=== PATIENT | male | born 1965 | race Caucasian/White ===

== ENCOUNTER → 2017-03-31 | Outpatient (CLI) | payer OTHER ==
[~2017-03-31] MED LIST: IOPAMIDOL (ISOVUE 370) 100 ML BTL IV ONE
== END ==
LOC: FIMAGING 14:36
PROVIDERS: ATTEND Family Medicine
DX: M79.606 Pain in leg, unspecified (principal); E10.9 Type 1 diabetes mellitus without complications; K86.89 Other specified diseases of pancreas; M71.22 Synovial cyst of popliteal space [Baker], left knee; Z98.1 Arthrodesis status
CPT/HCPCS: 75635; Q9967

== ENCOUNTER 2018-08-21 16:33 | Emergency (ER) | payer OTHER ==
[2018-08-21] MEDS ORDERED: NS 500 ML IV ONE (16:55)
[2018-08-21] MEDS ORDERED: ONDANSETRON 4 MG/2 ML VIAL IVP ONE (17:04)
[2018-08-21] MEDS ORDERED: FAMOTIDINE 20 MG in NS 100 ML IV ONE (17:04)
[2018-08-21] MEDS ORDERED: PROMETHAZINE HCL 25 MG/ML INJ IVP ONE ×2 (17:04→18:11)
[2018-08-21] MEDS ORDERED: NS 1,000 ML IV ONE ×2 (17:05→18:26)
--- NOTE | 2018-08-21 17:11 | EDPHY ---
H & P Time Seen by Provider: 08/21/18 16:49 HPI/ROS: HPI Nausea. 53-year-old male by private vehicle. This patient complains of nausea ongoing for the last 3 days. He had 1 episode of nonbilious nonbloody vomiting on . He reports that he did have some crampy abdominal discomfort this morning but then had a large bowel movement. This was mostly diarrhea which she describes as watery. His abdominal discomfort went away. He reports that he was feeling better earlier today but then ate lunch which included a sandwich at about 12 noon and his nausea return. He has not had any vomiting since . No ill contacts. No change in diet. No foreign travel. No significant abdominal surgical history. He denies any significant abdominal pain at this time. ROS: Constitutional: No fever, no chills. No weakness. Eyes: No discharge. No changes in vision. ENT: No sore throat. No nasal congestion or rhinorrhea. Respiratory: No cough. No shortness of breath. Cardiac: No chest pain, no palpitations. Gastrointestinal: As above. Genitourinary: No hematuria. No dysuria or increased frequency with urination. Musculoskeletal: No back pain. No neck pain. No myalgias or arthralgias. Skin: No rashes. Neurological: No headache. No focal weakness or altered sensation. Past medical history: Type 1 diabetes, syringomyelia, hypertension, coronary artery disease, lumbar fusion, hip surgery, cervical laminectomy, asthma. His primary care physician is Dr. Connolly with [facility]. Social history: Nonsmoker, his he is on methadone. History of opiate abuse. No alcohol. Physical Exam: General Appearance: Alert, he appears uncomfortable but not in distress. This patient is responding to questions appropriately and in full sentences. This patient appears well-hydrated and well-nourished. Eyes: Pupils equal and round no pallor or injection. No lid edema, erythema or injection. Respiratory: There are no retractions, lungs are clear to auscultation with good air movement bilaterally. Cardiovascular: Regular rate and rhythm. No murmur. Gastrointestinal: Abdomen is soft and nontender, no masses, bowel sounds normal. No focal tenderness at McBurney's point. No Ryan sign. Neurological: Motor sensory function is grossly intact. Cranial nerves are normal. Gait is normal. Skin: Warm and dry, no rashes. Musculoskeletal: Neck is supple and nontender. Extremities are symmetrical. All joints range without pain or impingement. Psychiatric: No agitation. No depression. Database: EKG: EKG time is 5:48 p.m.; EKG shows a narrow complex normal sinus rhythm with a ventricular rate of 64. The FL, QRS, QT intervals are within normal limits. There are no ST-T wave changes indicative of ischemic or injury pattern. No evidence of right heart strain. Interpreted by me. Imaging: Upright one view abdomen x-ray: A couple of nonspecific air fluid levels. Bowel loops otherwise appear normal. Interpreted by me. Procedures: Emergency department course: Triage vital signs reviewed. He is hypertensive. Triage vital signs are otherwise normal. He is afebrile. IV was placed. He was started on IV normal saline with 1 L to be given over 1 hr. He was initially given 4 mg of IV Zofran , 6.25 mg of IV Phenergan and 20 mg of IV Pepcid. 6:00 p.m., patient feeling better. Started on a 2nd L of IV normal saline. EKG reviewed and is unremarkable. Blood work normal except for a glucose of 186. Upright one view x-ray to be obtained to evaluate for obstructive process. 6:30 p.m., patient re-evaluated. He states that he is feeling better but still has some nausea. He was given an additional 6.25 mg dose of IV Phenergan. He feels like sipping some ice water now. This will be given to him. 7:15 p.m., the patient was re-evaluated. He is much more comfortable at this time. He just checked his blood sugar at was 147. Repeat abdominal exam is soft , nontender nondistended. He does feel comfortable going home at this time. I have discussed results of his emergency department workup with him and his family. His and daughter in the room at this time. They will drive him home. Follow-up and return to emergency department precautions were thoroughly reviewed with all of them. All of his questions were answered. The patient was discharged home in good condition. Differential Diagnosis: The differential diagnosis on this patient includes but is not limited to gastroparesis, food borne illness, gastroparesis viral gastroenteritis. Bowel obstruction/volvulus, other surgical etiology unlikely. This represents a partial list of diagnoses considered. These considerations are based on history , physical exam, past history, reassessment and diagnostic testing. Smoking Status: Never smoked Constitutional: Initial Vital Signs Temperature (C) 36.9 C 08/21/18 16:45 Heart Rate 75 08/21/18 16:45 Respiratory Rate 18 08/21/18 16:45 Blood Pressure 172/110 H 08/21/18 16:45 O2 Sat (%) 97 08/21/18 16:45 O2 Delivery Mode Room Air O2 (L/minute) 1 Allergies/Adverse Reactions: No Known Allergies Allergy (Verified 08/21/18 16:53) Home Medications: Medication Instructions Recorded Crestor 08/31/16 Insulin Lispro 08/31/16 LEVOTHYROXINE SODIUM 08/31/16 LISINOPRIL/HYDROCHLOROTHIAZIDE 08/31/16 METHADONE HCL 08/31/16 Neurontin 08/31/16 Nucynta 10/27/16 Cymbalta 08/21/18 Promethazine HCl [Phenergan 25mg 25 mg PO Q4-6PRN PRN #12 tab 08/21/18 (*)] Medical Decision Making - Diagnostics Imaging Results: Imaging Impressions Abdomen X-Ray 08/21/18 18:01 Impression: Nonspecific air-fluid levels in normal caliber small bowel with no definite acute findings. - Data Points Laboratory Results: 08/21/18 08/21/18 17:33 17:32 POC Sodium 139 mEq/L mEq/L (135-145) POC Potassium 3.8 mEq/L mEq/L (3.3-5.0) POC Chloride 101.0 mEq/L mEq/L (97-110) POC Total CO2 28 mEq/L mEq/L (22-31) POC BUN 8 mg/dL mg/dL (7-23) POC Creatinine 1.2 mg/dL mg/dL (0.7-1.3) POC Glucose 186 mg/dL H mg/dL (70-100) POC Calcium 10.2 mg/dL mg/dL (8.5-10.4) POC Total Bilirubin 0.7 mg/dL mg/dL (0.1-1.4) POC AST 32 IU/L IU/L (17-59) POC ALT 23 IU/L IU/L (21-72) POC Alk Phosphatase 53 IU/L IU/L (38-126) POC Troponin I 0.00 ng/mL ng/mL (0.00-0.08) POC Total Protein 7.1 g/dL g/dL (6.3-8.2) POC Albumin 3.6 g/dL g/dL (3.5-5.0) Medications Given: Discontinued Medications Famotidine (Pepcid) 20 mg IVP EDNOW ONE Stop: 08/21/18 17:53 Last Admin: 08/21/18 17:53 Dose: 20 mg Sodium Chloride (Ns) 500 mls @ 1,000 mls/hr IV EDNOW ONE PRN Reason: Protocol Stop: 08/21/18 17:24 Last Admin: 08/21/18 18:30 Dose: Not Given Sodium Chloride (Ns) 1,000 mls @ 0 mls/hr IV EDNOW ONE; Wide Open PRN Reason: Protocol Stop: 08/21/18 17:06 Last Admin: 08/21/18 17:25 Dose: 1,000 mls Famotidine 20 mg/ Sodium (Chloride) 102 mls @ 408 mls/hr IV EDNOW ONE Stop: 08/21/18 17:18 Last Admin: 08/21/18 17:50 Dose: Not Given Sodium Chloride (Ns) 1,000 mls @ 0 mls/hr IV ONCE ONE PRN Reason: Wide Open Stop: 08/21/18 18:27 Last Admin: 08/21/18 18:15 Dose: 1,000 mls Ondansetron HCl (Zofran) 4 mg IVP EDNOW ONE Stop: 08/21/18 17:05 Last Admin: 08/21/18 17:35 Dose: 4 mg Promethazine HCl (Phenergan) 6.25 mg IVP EDNOW ONE Stop: 08/21/18 17:05 Last Admin: 08/21/18 17:33 Dose: 6.25 mg Promethazine HCl (Phenergan) 6.25 mg IVP EDNOW ONE Stop: 08/21/18 18:12 Last Admin: 08/21/18 18:18 Dose: 6.25 mg Point of Care Test Results: CBC CBC Collection Date 08/21/18 CBC Collection Time 17:24 WBC 8.0 RBC 5.34 HGB 15.0 HCT 44.3 PLT 168 Neut # 5.4 Neut 67.1 LYMPH # 2.2 LYMPH 28.0 Other WBC # 0.4 Other WBC 4.9 MCV 83.0 Chemistry 08/21/18 08/21/18 17:33 17:32 POC Sodium 139 mEq/L mEq/L (135-145) POC Potassium 3.8 mEq/L mEq/L (3.3-5.0) POC Chloride 101.0 mEq/L mEq/L (97-110) POC Total CO2 28 mEq/L mEq/L (22-31) POC BUN 8 mg/dL mg/dL (7-23) POC Creatinine 1.2 mg/dL mg/dL (0.7-1.3) POC Glucose 186 mg/dL H mg/dL (70-100) POC Calcium 10.2 mg/dL mg/dL (8.5-10.4) POC Total Bilirubin 0.7 mg/dL mg/dL (0.1-1.4) POC AST 32 IU/L IU/L (17-59) POC ALT 23 IU/L IU/L (21-72) POC Alk Phosphatase 53 IU/L IU/L (38-126) POC Troponin I 0.00 ng/mL ng/mL (0.00-0.08) POC Total Protein 7.1 g/dL g/dL (6.3-8.2) POC Albumin 3.6 g/dL g/dL (3.5-5.0) Comprehensive Metabolic Panel CMP Collection Date 08/21/18 CMP Collection Time 17:24 Departure - Departure Disposition: Home, Routine, Self-Care Clinical Impression: Nausea and vomiting Condition: Good Instructions: Acute Nausea and Vomiting (ED) Additional Instructions: Read and follow provided instructions. Follow-up with your primary care physician in 1-2 days for re-evaluation. Take medication as prescribed for nausea. Keep well hydrated. Do not worry about solid foods for the next couple of days. A good fluid to drink for hydration is Gatorade mixed with water over ice in a 1-1 dilution. Small frequent meals as discussed, Alvin crackers, juices, egg whites scrambled an olive oil for protein. Return to the emergency department for worsening symptoms, vomiting and inability to keep fluids down despite medication, worsening abdominal pain or other serious concerns. Referrals: Francia Infante [Primary Care Provider] - As per Instructions Prescriptions: Promethazine HCl [Phenergan 25mg (*)] 25 mg PO Q4-6PRN PRN #12 tab PRN Reason: For Nausea & Vomiting
[2018-08-21] MEDS ORDERED: FAMOTIDINE 20 MG/2 ML SDV IVP ONE (17:52)
[2018-08-21 19:20] VITALS: BP 136/80
--- NOTE | 2018-08-21 21:15 | CPEKG ---
Test Reason : OPEN Blood Pressure : / mmHG Vent. Rate : 064 BPM Atrial Rate : 064 BPM P-R Int : 161 ms QRS Dur : 103 ms QT Int : 390 ms P-R-T Axes : 043 046 030 degrees QTc Int : 403 ms Sinus rhythm Confirmed by Clare David [id number] on 08/21/2018 9:15:09 PM Referred By: Confirmed By:Clare David
== END 2018-08-21 19:20 | disposition home or self-care (01) ==
LOC: CED 16:33
DX: R11.2 Nausea with vomiting, unspecified (principal); E10.9 Type 1 diabetes mellitus without complications; I11.9 Hypertensive heart disease without heart failure; E86.9 Volume depletion, unspecified; Z79.899 Other long term (current) drug therapy
CPT/HCPCS: 74018; 93005; 96361; 96374; 96375; 96376; 99284; J2405; J2550; 80053-PO; 84484-PO

== ENCOUNTER → 2018-12-06 | Outpatient (CLI) | payer OTHER | LOC: SBRMNEURO 21:00 | PROVIDERS: ATTEND Psychiatry & Neurology Sleep Medicine | DX: G47.39 Other sleep apnea (principal); G47.33 Obstructive sleep apnea (adult) (pediatric); G47.61 Periodic limb movement disorder ==